=== PATIENT | female | born 1945 | race Caucasian/White ===

== ENCOUNTER → 2019-11-03 | Outpatient (CLI) | payer OTHER ==
[~2019-11-03] MED LIST: AMBIEN 5 MG TABL5 M1 PO; ASA81BEC PO; CARBIDOPA-LEVO1 EAC9 PO; COQ-10100 MG PO; IBUPROFEN 200200 M1 PO; MULTIPLE VITAM1 EAC4 PO; ROSUVASTATIN CA10 MG PO
== END ==
LOC: LAB 12:56
PROVIDERS: ATTEND Ophthalmology
DX: Z01.812 Encounter for preprocedural laboratory examination (principal); Z20.828 Contact with and (suspected) exposure to other viral communicable diseases; R05 Cough; R06.02 Shortness of breath; J02.9 Acute pharyngitis, unspecified; R43.8 Other disturbances of smell and taste

== ENCOUNTER 2019-11-06 06:19 | Day surgery (SDC) | payer OTHER ==
[~2019-11-06] VITALS: Ht 165.1 cm; Wt 53.5 kg
--- NOTE | ~2019-11-06 | O ---
[facility] [place] [address] OPERATIVE REPORT Name: KARIN SANCHEZ Room #: 150-4 [facility]#: [id number] Admission: 11/06/19 Attend Phys: Sea De La Torre MD Discharge: Date of : 47 Report #: [id number] THIS REPORT FOR: cc: Jennifer Erazo,Sea Ross MD ~ CC: Cody Alvarado DATE OF SERVICE: 11/06/2019 PREOPERATIVE DIAGNOSIS: Bilateral upper lid ptosis with superior visual field defects both eyes. POSTOPERATIVE DIAGNOSIS: Bilateral upper lid ptosis with superior visual field defects both eyes. OPERATION PERFORMED: Bilateral upper lid functional ptosis repair. SURGEON: Britt Osei MD. CABLE TELEVISION PROGRAM DIRECTOR: None. ANESTHESIA: Local with IV sedation. COMPLICATIONS: None. INDICATIONS FOR PROCEDURE: This patient has bilateral upper lid ptosis with superior visual field loss both eyes. Visual field testing demonstrates dense superior visual defects. Retesting with the upper lid elevated shows an improvement in visual field loss of over 30% and in excess of 12 degrees. The current procedure is being undertaken in order to improve the patient's visual function. Informed consent was obtained to include but not limited to the risk of loss of vision, bleeding, infection, scarring, failure to improve the problem and need for further surgery, such as adjustment of lid height. DESCRIPTION OF PROCEDURE: The patient was taken to the operating room, where 2% Xylocaine with epinephrine mixed with equal parts of 0.75% Marcaine with Wydase was administered transcutaneously to each upper lid. The patient was then prepped and draped in the usual sterile fashion. An upper lid crease incision was then made bilaterally and the dissection was carried down until the orbital septum was identified. The orbital septum was [facility] [address] [place] [address] OPERATIVE REPORT Name: DANIELKARIN M Room #: 150-4 [facility]#: [id number] Admission: 11/06/19 Attend Phys: Sea De La Torre MD Discharge: Date of : 47 Report #: [id number] then cleared and the preaponeurotic fat identified. The levator aponeurosis was then disinserted from the anterior surface of the tarsal plate and dissected free in the avascular Villanueva's muscle plane. The aponeurosis was then advanced and reattached to the anterior surface of the tarsal plate with interrupted mattress 6-0 Novafil sutures on each side, adjusting for height and contour. The redundant aponeurosis was then amputated. The incision was then closed with multiple interrupted 6-0 chromic sutures that were used to recreate an upper lid crease. The skin was closed with a running 6-0 plain gut suture. The wound was then cleaned and dressed with ophthalmic antibiotic ointment followed by a Telfa pad. The patient was transported to the recovery area, having tolerated the procedure well with no anesthesia or operative complications being noted. By: [id number] Sea De La Torre MD /nt
[2019-11-06 07:23] VITALS: BP 108/62
== END 2019-11-06 09:22 | disposition home or self-care (01) ==
LOC: OR 06:19 → TBA 06:21 → OR 09:18
PROVIDERS: ATTEND Ophthalmology
DX: H02.413 Mechanical ptosis of bilateral eyelids (principal); H53.462 Homonymous bilateral field defects, left side; H53.461 Homonymous bilateral field defects, right side; G20 Parkinson's disease; E78.5 Hyperlipidemia, unspecified; Z98.890 Other specified postprocedural states; Z79.899 Other long term (current) drug therapy; Z87.891 Personal history of nicotine dependence
CPT/HCPCS: 50010; 50101; 50386; 50398; 51636; 56528; 56531; 62110; 62850; 70005